=== PATIENT | female | born 1950 | race Two or more races ===

== ENCOUNTER → 2024-10-26 | Outpatient (CLI) | payer OTHER, SELFPAY ==
[2024-10-26 11:32] LABS: Hepatitis A Antibody IgM Non Reactive (Non React); Hepatitis B Core Antibody IgM Non Reactive (Non React); Hepatitis B Surface Antigen Non Reactive (Non React); Hepatitis C Antibody Non Reactive (Non React)
[2024-11-02 06:50] LABS: HIV Ag/Ab, 4th Gen NON-REACTIVE
== END | disposition home or self-care (01) ==
LOC: COPL 09:52
PROVIDERS: PCP Physician Assistant; Referring Provider Physician Assistant; Visit Provider Physician Assistant
DX: Z11.3 Encounter for screening for infections with a predominantly sexual mode of transmission (principal)
CPT/HCPCS: 36415; 80074; 87389

== ENCOUNTER → 2024-12-16 | Outpatient (CLI) | payer OTHER, SELFPAY ==
[2024-12-16 15:12] LABS: Cardiac Risk Estimate 2.8 RATIO (3.7-5.6); Cholesterol 165 mg/dL (132-200); Free T4 (Free Thyroxine) 1.26 ng/dL (0.89-1.76); HDL Cholesterol 60 mg/dL (40-60); LDL Cholesterol,Calculated 65 mg/dL (0-130); Triglycerides 202 mg/dL (30-150)
== END | disposition home or self-care (01) ==
LOC: COPL 13:30
PROVIDERS: PCP Internal Medicine; Referring Provider Physician Assistant; Visit Provider Physician Assistant
DX: E03.9 Hypothyroidism, unspecified (principal); E78.2 Mixed hyperlipidemia
CPT/HCPCS: 36415; 80061; 84439; 84443

== ENCOUNTER → 2025-03-18 | Outpatient (CLI) | payer OTHER, SELFPAY ==
[2025-03-18 09:12] LABS: Cardiac Risk Estimate 2.8 RATIO (3.7-5.6); Cholesterol 164 mg/dL (132-200); Free T4 (Free Thyroxine) 1.22 ng/dL (0.89-1.76); HDL Cholesterol 59 mg/dL (40-60); LDL Cholesterol,Calculated 75 mg/dL (0-130); Thyroid Stimulating Hormone 0.29 uIU/mL (0.55-4.78); Triglycerides 151 mg/dL (30-150)
== END | disposition home or self-care (01) ==
LOC: COPL 07:15
PROVIDERS: PCP Physician Assistant; Referring Provider Physician Assistant; Visit Provider Physician Assistant
DX: E03.9 Hypothyroidism, unspecified (principal); E78.2 Mixed hyperlipidemia
CPT/HCPCS: 36415; 80061; 84439; 84443

== ENCOUNTER → 2025-06-15 | Outpatient (CLI) | payer OTHER, SELFPAY ==
[2025-06-15 13:11] LABS: Free T4 (Free Thyroxine) 0.81 ng/dL (0.89-1.76); Thyroid Stimulating Hormone 7.67 uIU/mL (0.55-4.78)
== END | disposition home or self-care (01) ==
LOC: COPL 11:40
PROVIDERS: PCP Physician Assistant; Referring Provider Physician Assistant; Visit Provider Physician Assistant
DX: E03.9 Hypothyroidism, unspecified (principal)
CPT/HCPCS: 36415; 84439; 84443

== ENCOUNTER → 2025-07-01 | Outpatient (CLI) | payer OTHER, SELFPAY ==
--- NOTE | 2025-07-01 13:22 | XR_ITS ---
EXAMINATION: Ankle, left 3 views . Technique: Ankle AP, oblique, lateral 3 views Date and time of exam: July 01, 2025 1326 hours INDICATIONS: Left ankle pain beginning 3 days ago. FINDINGS: No fracture or dislocation Moderate osteopenia Mild narrowing tibiotalar joint IMPRESSION: Mild osteoarthritis tibiotalar joint
== END | disposition home or self-care (01) ==
PROVIDERS: PCP Physician Assistant; Referring Provider Physician Assistant; Visit Provider Physician Assistant
DX: M19.072 Primary osteoarthritis, left ankle and foot (principal)
CPT/HCPCS: 73610

== ENCOUNTER → 2025-07-29 | Outpatient (CLI) | payer OTHER, SELFPAY ==
--- NOTE | 2025-07-29 08:15 | XR_ITS ---
Examination: Screening digital mammography, bilateral Computer aided detection 3-D breast Tomosynthesis, bilateral Date and time of exam: 07/29/2025, 8:18 AM Comparisons: September 2011 through August 2024 Indications: Screening Technique: Nonmagnified MLO, CC views of the breasts to been obtained, reconstructed from 3-D Tomosynthesis images. R2 computer aided detection program utilized for evaluation of suspicious masses and/or abnormal calcifications. 3-D Tomosynthesis images obtained. Technologist: Findings: There are scattered areas of fibroglandular density. No evidence of abnormal masses or suspicious calcifications. Impression: BI-RADS category 1: Negative findings (within normal) Recommend 1 year follow-up mammogram
== END | disposition home or self-care (01) ==
PROVIDERS: PCP Physician Assistant; Referring Provider Physician Assistant; Visit Provider Physician Assistant
DX: Z12.31 Encounter for screening mammogram for malignant neoplasm of breast (principal); R92.313 Mammographic fatty tissue density, bilateral breasts
CPT/HCPCS: 77063; 77067

== ENCOUNTER → 2025-07-30 | Outpatient (CLI) | payer OTHER, SELFPAY ==
[2025-07-30 13:48] LABS: Free T4 (Free Thyroxine) 1.44 ng/dL (0.89-1.76); Thyroid Stimulating Hormone 0.40 uIU/mL (0.55-4.78)
== END | disposition home or self-care (01) ==
LOC: COPL 11:19
PROVIDERS: PCP Physician Assistant; Referring Provider Physician Assistant; Visit Provider Physician Assistant
DX: E03.9 Hypothyroidism, unspecified (principal)
CPT/HCPCS: 36415; 84439; 84443

== ENCOUNTER → 2025-10-04 | Outpatient (CLI) | payer OTHER, SELFPAY ==
[2025-10-04 10:44] LABS: OBS Performed By LAB; OBS QC OK? Yes
[2025-10-04 13:48] LABS: OBS Developer Lot # 4-24-551749; Occult Blood, Stool Negative (Negative); Occult Blood, Stool #2 Negative (Negative); Occult Blood, Stool #3 Negative (Negative)
[2025-10-04 13:49] LABS: OBS Developer Expiration Date 2-28-2027
== END | disposition home or self-care (01) ==
LOC: SLDO 10:31
PROVIDERS: PCP Physician Assistant; Referring Provider Physician Assistant; Visit Provider Physician Assistant
DX: Z12.11 Encounter for screening for malignant neoplasm of colon (principal)
CPT/HCPCS: 82270